=== PATIENT | male | born 1965 | race Caucasian/White ===

== ENCOUNTER 2016-05-19 04:23 | Day surgery (SDC) | payer OTHER ==
[2016-05-11 15:09] LABS: HEMOGLOBIN 16.2 g/dL (13.6-17.8)
[2016-05-11 16:06] LABS: CALCIUM, SERUM 8.5 MG/DL (8.5-10.4); CHLORIDE, SERUM 100 MMOL/L (96-112); CO2 (CARBON DIOXIDE) 27 MMOL/L (24-34); CREATININE 1.22 MG/DL (0.70-1.30); GFR AFRICAN AMERICAN 80 ML/MIN (>=60); GFR NON AFRICAN AMERICAN 69 ML/MIN (>=60); SODIUM, SERUM 139 MMOL/L (135-148)
[2016-05-11 16:08] LABS: BUN (BLOOD UREA NITROGEN) 13 MG/DL (6-23); GLUCOSE, SERUM 110 MG/DL (60-99)
--- NOTE | ~2016-05-19 | OP ---
Record Of [facility] [address] [place]. 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 POSTOPERATIVE DIAGNOSIS: Failed spinal column stimulator system. PROCEDURE: 1. Removal of spinal column stimulator thoracic lead through laminectomy site. 2. Removal of battery generator. SURGEON: Marzena Hernandez M.D. FLUIDS: 600 mL of LR. ESTIMATED BLOOD LOSS: 5 mL. DRAINS: None. COMPLICATIONS: None. ANTIBIOTIC: Preoperatively. HISTORY OF PRESENT ILLNESS: A very friendly 50-year-old gentleman who reports that his spinal column stimulator battery is no longer working. He overall wished to have the system removed instead of a new battery. DESCRIPTION OF PROCEDURE: After informed consent was obtained, the patient was brought to the operating room at his request and the patient underwent general anesthesia. He was placed in the prone position, and the back was prepped and draped in a sterile fashion. At this point, the battery was identified and removed in its entirety on the left side. Next, the thoracic incision was incised followed by identification of the spinal column stimulator lead at the laminectomy site. The lead was then removed and the area irrigated including the battery site. Standard closure was performed, and the patient was extubated and transferred to PACU in stable condition. CHIRAG/BELEN Marzena Hernandez II, M.D. / [id number] Record Of [facility] [id number] [place]. [address] NAME: LENA MOE : 67 STATUS : [facility]#: [id number] AGE: 50 ADM/REG DATE : 05/19/16 MR#: [id number] REPORT SERV DATE: 05/20/16 DICTATED BY: MARZENA HERNANDEZ II DATE: 05/20/16 REPORT STATUS : Draft TRANSCRIBED BY: BELEN DATE: 05/20/16 CC: Marzena Hernandez II, M.D.
[~2016-05-19 04:23] MED LIST: ASAB PO; CLARIT10 PO; ESKACR PO; HALF81 PO; LIPITOR10 PO; LIPITOR20 PO; LOP25 PO; MELA3 PO; NAP500 PO; PLAVIX PO; POTASSIUM PO; PRILOSEC40 MG PO; PROZAC40 MG PO; REQUIP2 PO; SEROQUEL1C PO; SEROQUEL200 MG PO; SOMATAB PO; XANAX2 MG PO; ZANTAC 150 PO; ZANTAC150 MG PO
== END 2016-05-19 14:30 | disposition home or self-care (01) ==
LOC: SDC 04:23
PROVIDERS: Orthopaedic Surgery
PROC: 0JPT0MZ Removal of Stimulator Generator from Trunk Subcutaneous Tissue and Fascia, Open Approach (ICD-10-PCS; 2016-05-19)
PROC: 01PY0MZ Removal of Neurostimulator Lead from Peripheral Nerve, Open Approach (ICD-10-PCS; principal; 2016-05-19 05:45)
DX: T85.193A Other mechanical complication of implanted electronic neurostimulator, generator, initial encounter (principal); I25.2 Old myocardial infarction; I25.10 Atherosclerotic heart disease of native coronary artery without angina pectoris; E78.00 Pure hypercholesterolemia, unspecified; J44.9 Chronic obstructive pulmonary disease, unspecified; J45.909 Unspecified asthma, uncomplicated; M54.5 Low back pain; K21.9 Gastro-esophageal reflux disease without esophagitis; F41.9 Anxiety disorder, unspecified; F31.9 Bipolar disorder, unspecified; F41.0 Panic disorder [episodic paroxysmal anxiety]; F17.210 Nicotine dependence, cigarettes, uncomplicated; Z95.5 Presence of coronary angioplasty implant and graft; Z99.89 Dependence on other enabling machines and devices; Z88.5 Allergy status to narcotic agent; Z88.8 Allergy status to other drugs, medicaments and biological substances; Z79.02 Long term (current) use of antithrombotics/antiplatelets; Z79.899 Other long term (current) drug therapy; Z98.890 Other specified postprocedural states
CPT/HCPCS: 80048; 85014; 85018; 88300; 93005; J0690; J2250; J2370; J2405; J2710; J3010